=== PATIENT | male | born 1975 | race Two or more races ===

== ENCOUNTER → 2017-10-23 | Outpatient (CLI) | payer OTHER | END | disposition home or self-care (01) | LOC: WOUND 13:37 | PROVIDERS: ATTEND Internal Medicine | DX: T23.321A Burn of third degree of single right finger (nail) except thumb, initial encounter (principal); T31.0 Burns involving less than 10% of body surface; X08.8XXA Exposure to other specified smoke, fire and flames, initial encounter; Y93.89 Activity, other specified; Y92.89 Other specified places as the place of occurrence of the external cause; Y99.8 Other external cause status; Z87.891 Personal history of nicotine dependence; S61.209D Unspecified open wound of unspecified finger without damage to nail, subsequent encounter; S61.202D Unspecified open wound of right middle finger without damage to nail, subsequent encounter; X58.XXXD Exposure to other specified factors, subsequent encounter | CPT/HCPCS: 11042; 99203; 99215 ==

== ENCOUNTER → 2017-11-07 | Outpatient (CLI) | payer OTHER | END | disposition home or self-care (01) | LOC: WOUND 13:15 | PROVIDERS: ATTEND Internal Medicine | DX: T23.021D Burn of unspecified degree of single right finger (nail) except thumb, subsequent encounter (principal); X08.8XXD Exposure to other specified smoke, fire and flames, subsequent encounter; Z87.891 Personal history of nicotine dependence | CPT/HCPCS: 99213 ==